=== PATIENT | male | born 1960 | race Caucasian/White ===

== ENCOUNTER → 2021-06-17 14:02 | Outpatient (BNVA) | payer OTHER, SELFPAY | PROVIDERS: PCP Internal Medicine; Referring Provider Internal Medicine; Visit Provider Internal Medicine Cardiovascular Disease | DX: I25.10 Atherosclerotic heart disease of native coronary artery without angina pectoris (principal); E78.5 Hyperlipidemia, unspecified | CPT/HCPCS: 93005 ==

== ENCOUNTER → 2022-07-07 14:17 | Outpatient (BNVA) | payer OTHER, SELFPAY | PROVIDERS: PCP Internal Medicine; Referring Provider Internal Medicine; Visit Provider Internal Medicine Cardiovascular Disease | DX: I25.10 Atherosclerotic heart disease of native coronary artery without angina pectoris (principal); E78.5 Hyperlipidemia, unspecified | CPT/HCPCS: 93005 ==

== ENCOUNTER 2023-07-06 10:39 | Outpatient (AMB) | payer OTHER, SELFPAY ==
[2023-07-06 10:54] VITALS: BP 118/72; PULSE 66; BMI 28.7
--- NOTE | 2023-07-06 10:54 | MHC.OFFVIS ---
Intake Vital Signs 07/06/23 10:54 Height 5 ft 6 in Weight 178 lb 2.136 oz BMI 28.7 BP 118/72 Blood Pressure Location Lt brachial Position Sitting Pulse 66 Pulse Source Monitor Intake Visit Reasons: 1 yr f/up Intake Note: 1 year follow up with EKG. 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 He has been doing extremely well from cardiac perspective. He has been exercising regularly with 45 minutes of cardio 6 times a week as well as 45 minutes of resistance training 6 times a week. Denies any exertional chest pain. Taking all his medications. Last LDL of 53 mg/dL. Denies any other cardiac symptoms. No prolonged palpitations irregular heartbeat. No lightheadedness, syncope. [facility] Medical History CAD (coronary artery disease) Hyperlipidemia Surgical History History of esophagogastroduodenoscopy (EGD) Stented coronary artery Family History Father CVD (cardiovascular disease) Mother CVD (cardiovascular disease) Social History Alcohol intake: never Patient Tobacco Use Status: Never used Tobacco Review of Systems Const Denies weakness ENT Denies dizziness Card Denies chest pain, Denies chest pain with activity, Denies syncope, Denies rapid heart rate, Denies pedal edema, Denies edema, Denies leg edema, Denies lightheadedness, Denies palpitations, Denies dyspnea, Denies dyspnea on exertion and Denies orthopnea Resp Denies cough, Denies dyspnea and Denies dyspnea on exertion GI Denies hematochezia and Denies change in stool character Musc Denies abnormal gait, Denies muscle cramps, Denies muscle weakness, Denies numbness, Denies radiating pain into limb and Denies tingling Neuro Denies abnormal gait, Denies dizziness, Denies syncope, Denies numbness, Denies tingling and Denies weakness Endo Denies palpitations Physical Exam Vital Signs: Last Vital Signs Pulse 66 07/06/23 10:54 BP 118/72 07/06/23 10:54 BMI result Body Mass Index 28.7 Const General: cooperative, comfortable, no acute distress, alert, awake and well groomed Nutritional Appearance: overweight Orientation/consciousness: patient oriented x3 Limitations: no limitations Neck Neck: Yes trachea midline, Yes supple and Yes no JVD Resp Effort & Inspection: normal respiratory effort Auscultation: clear to auscultation bilaterally Cardio Jugular venous distension: no JVD Palpation: normal PMI Rate: regular rate Rhythm: regular rhythm Heart sounds: S1 normal heart sound present, S2 normal heart sound present, no click, no gallops, no murmurs and no rubs GI Auscultation: normal bowel sounds Skin General skin exam: no rashes or lesions noted Neuro General: patient oriented x3 and no focal motor deficits Extrem General: Yes no clubbing, cyanosis or edema Office Procedures EKG Details: EKG shows normal sinus rhythm with normal EKG at 66 beats per minute [id number], Complete Assessment & Plan Assessment & Plan (1) CAD (coronary artery disease): Comment: Acute coronary syndrome, April 2015, drug-eluting stent to mid LAD Code(s): I25.10 - Atherosclerotic heart disease of [place] coronary artery without angina pectoris Plan: CAD with remote stenting of the LAD for acute coronary syndrome. Since then he has remained stable. His atherosclerotic disease is stable at this point time. Continue aggressive risk factor modification. LDL is well optimized at 53 mg/dL. Continue high-intensity statin therapy. Continue low-dose aspirin therapy for life. Blood pressure is currently well optimized encouraged to continue maintain activity level as tolerated without any restrictions. Call me with any new symptoms. We discussed in details about pathophysiology of coronary artery disease. Will follow up in the clinic in 1 year's time, sooner p.r.n.. Thank you for allowing me to partake in his care Coding Level of Care Code Est Pt Level 4 (45838) Diagnoses CAD (coronary artery disease) I25.10 CPT Codes EKG - CPT: 85384-[id number], Complete ([id number])
== END 2023-07-06 11:21 | disposition home or self-care (01) ==
PROVIDERS: PCP Internal Medicine; Referring Provider Internal Medicine; Visit Provider Internal Medicine Cardiovascular Disease
DX: I25.10 Atherosclerotic heart disease of native coronary artery without angina pectoris (principal)
CPT/HCPCS: 93010; 99214

== ENCOUNTER → 2023-07-06 10:39 | Outpatient (BNVA) | payer OTHER, SELFPAY | PROVIDERS: PCP Internal Medicine; Referring Provider Internal Medicine; Visit Provider Internal Medicine Cardiovascular Disease | DX: I25.10 Atherosclerotic heart disease of native coronary artery without angina pectoris (principal); Z79.82 Long term (current) use of aspirin; Z79.899 Other long term (current) drug therapy | CPT/HCPCS: 93005 ==

== ENCOUNTER 2024-07-18 09:59 | Outpatient (AMB) | payer MEDICARE, SELFPAY ==
--- NOTE | 2024-07-18 10:03 | MHC.OFFVIS ---
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 He has done extremely well. He continues to maintain high level activity exercise 6 days a week at high-intensity level without any symptoms. No exertional chest pain or shortness of breath. He had 1 episode of chest pain at rest after an hour after he ate. This lasted for 10-15 seconds. Has not recurred. Pain was not similar to his acute coronary syndrome pain. Takes all his medications. Denies any shortness of breath, orthopnea, PND, leg edema. No prolonged palpitation irregular heartbeat. [facility] Medical History Hyperlipidemia CAD (coronary artery disease) Surgical History Stented coronary artery History of esophagogastroduodenoscopy (EGD) Family History Father CVD (cardiovascular disease) Mother CVD (cardiovascular disease) Social History Alcohol intake: never Patient Tobacco Use Status: Never used Tobacco Review of Systems Const Denies chills, Denies fatigue, Denies fever(s), Denies frequent falls, Denies weakness, Denies weight gain and Denies weight loss ENT Denies dizziness Card Denies chest pain, Denies leg edema, Denies lightheadedness, Denies palpitations, Denies dyspnea, Denies dyspnea on exertion, Denies orthopnea and Denies other (loss of consciousness) Resp Denies cough, Denies dyspnea and Denies dyspnea on exertion GI Denies hematochezia and Denies change in stool character Musc Denies abnormal gait, Denies muscle weakness, Denies numbness, Denies radiating pain into limb and Denies tingling Neuro Denies abnormal gait, Denies dizziness, Denies frequent falls, Denies numbness, Denies tingling and Denies weakness Endo Denies fatigue and Denies palpitations Physical Exam Vital Signs: Last Vital Signs Pulse 64 07/18/24 10:04 BP 120/76 07/18/24 10:04 BMI result Body Mass Index 28.8 Const General: cooperative, comfortable, no acute distress, alert, awake and well groomed Nutritional Appearance: overweight Orientation/consciousness: patient oriented x3 Limitations: no limitations Neck Neck: Yes trachea midline, Yes supple and Yes no JVD Resp Effort & Inspection: normal respiratory effort Auscultation: clear to auscultation bilaterally Cardio Jugular venous distension: no JVD Palpation: normal PMI Rate: regular rate Rhythm: regular rhythm Heart sounds: S1 normal heart sound present, S2 normal heart sound present, no click, no gallops, no murmurs and no rubs GI Auscultation: normal bowel sounds Skin General skin exam: no rashes or lesions noted Neuro General: patient oriented x3 and no focal motor deficits Extrem General: Yes no clubbing, cyanosis or edema Office Procedures EKG Details: EKG shows normal sinus rhythm with normal EKG [id number], Complete Assessment & Plan Assessment & Plan (1) CAD (coronary artery disease): Comment: Acute coronary syndrome, April 2015, drug-eluting stent to mid LAD Code(s): I25.10 - Atherosclerotic heart disease of [place] coronary artery without angina pectoris Category: Medical Plan: Coronary artery disease status post drug-eluting stent to LAD for acute coronary syndrome. Recent chest pain syndrome was atypical. He is not having any exertional symptoms. Advised to call me with the symptom pattern changes. Continue current aspirin therapy for life. Continue high-intensity statin therapy with well optimized LDL. Will follow-up myocardial perfusion imaging next May at 10 year anniversary to evaluate for progressive atherosclerotic disease. Pathophysiology of atherosclerosis and nature of drug-eluting stent was discussed in details with him. Continue maintain activity level as tolerated. Annual lipid panel should be pursued and target goal LDL around 60 mg/dL. Will follow up in the clinic in 1 year's time, sooner p.r.n.. Thank you for allowing me to partake in his care Orders: Orders CA stress test 8 Months I25.10 - Atherosclerotic heart disease of [place] coronary artery without angina pectoris NM cardiolite stress test 8 Months I25.10 - Atherosclerotic heart disease of [place] coronary artery without angina pectoris Coding Level of Care Code Est Pt Level 4 (90981) Diagnoses CAD (coronary artery disease) I25.10 CPT Codes EKG - CPT: 01543-[id number], Complete ([id number])
[2024-07-18 10:04] VITALS: BP 120/76; PULSE 64; BMI 28.8
== END 2024-07-18 10:30 | disposition home or self-care (01) ==
PROVIDERS: PCP Internal Medicine; Visit Provider Internal Medicine Cardiovascular Disease
DX: I25.10 Atherosclerotic heart disease of native coronary artery without angina pectoris (principal)
CPT/HCPCS: 93010; 99214

== ENCOUNTER → 2024-07-18 09:59 | Outpatient (BNVA) | payer BC, SELFPAY | PROVIDERS: PCP Internal Medicine; Visit Provider Internal Medicine Cardiovascular Disease | DX: I25.10 Atherosclerotic heart disease of native coronary artery without angina pectoris (principal); Z79.82 Long term (current) use of aspirin; Z79.899 Other long term (current) drug therapy | CPT/HCPCS: 93005 ==

== ENCOUNTER → 2025-04-06 08:13 | Outpatient (REF) | payer MEDICARE, SELFPAY ==
--- OUTSIDE RECORDS SUMMARY | 2025-04-06 08:17 | XMS_ITS | Clinical Summary ---
Author Organization [facility], Address [address] [place] [address] [place] [address] Phone Care Team Providers Care Quality Control Tester Name Role Phone Layton Calvert MD Primary Care Provider [phone] Allergies Active Allergy Reactions Criticality Noted Date Comments Fentanyl 05/06/2021 Medications omeprazole (PriLOSEC) [address] capsule Take by mouth 1 (one) time each day 02/28/2021 Active amoxicillin-cla vulanate (AUGMENTIN) 875-125 MG per tablet 04/24/2021 Active atorvastatin (LIPITOR) 80 MG tablet Take 80 mg by mouth 1 (one) time each day in the evening 01/27/2021 Active aspirin 81 MG chewable tablet Chew 81 mg 1 (one) time each day Active Active Problems Problem Noted Date Diagnosed Date Hyperbilirubinemia 05/06/2021 Social History Tobacco Use Types Packs/Day Years Used Date Smoking Tobacco: Never Sex and Gender Information Value Date Recorded Sex Assigned at Not on file Legal Sex Male 12:05 PM EDT Gender Identity Not on file Sexual Orientation Not on file Plan of Treatment Health Maintenance Due Date Last Done Comments Colorectal Cancer Screening: Annual FOBT 2007 Colorectal Cancer Screening: Colonoscopy 2007 Colorectal Cancer Screening: Sigmoidoscopy 2007 Pneumococcal Vaccine: 50+ Ye ars (1 of 1 - PCV) 2008 Influenza Vaccine (Season Ended) 2025 Hepatitis B Vaccine Aged Out No longe r eligible based on patient's age to complete this topic [place] [address] Care Teams Quality Control Tester Relationship Specialty Start Date End Date Layton Calvert MD [address] [place] [address] [address] [place], [place] PCP - General Internal Medicine 03/28/21
--- NOTE | 2025-04-06 08:31 | CA_ITS ---
Acquisition Time: 2025-04-06 08:40:11 Total Exercise Time: 00:10:30 Test Indications: CP CAD Medications: ASA ATORVASTATIN OMEPRAZOLE Protocol: CARLOS Max HR: 171 BPM 111% of Pred: 154 BPM Max BP: 170/70 mmHG Max Work Load: 12.5 METS Exercise stress test with exercise 10 mins 30 secs of Carlos Protocol, achieving 90% MPHR, without any anginal symptoms, without any arrythmias, with normotensive response to exercise. Without any EKG changes meeting criteria for ischemia. In recovery, pt continued to feel good. Nuclear images pending. Test reviewed with Dr. Laguna. Referred By: Thomas Laguna Electronically Signed By: Silviano Hubbard
== END ==
LOC: HO.CARD 08:13
PROVIDERS: Visit Provider Internal Medicine Cardiovascular Disease
DX: I25.10 Atherosclerotic heart disease of native coronary artery without angina pectoris (principal)
CPT/HCPCS: 93017

== ENCOUNTER → 2025-04-06 08:31 | Outpatient (BNV) | payer MEDICARE, SELFPAY | DX: R07.9 Chest pain, unspecified (principal); I25.10 Atherosclerotic heart disease of native coronary artery without angina pectoris | CPT/HCPCS: 78452; 93016; 93018 ==

== ENCOUNTER 2025-05-30 08:26 | Outpatient (AMB) | payer MEDICARE, SELFPAY ==
--- OUTSIDE RECORDS SUMMARY | 2025-05-25 23:59 | XMS_ITS | Continuity of Care Document ---
Author Organization [facility] Address [address] [place] [address]- Care Team Providers Care Clinical Trial Associate Name Role Phone Philip MORALES, Soraya Primary Care Physician Encounter [facility] Date(s): 05/18/25 - 05/25/25 [facility] [address], [place] [address] Attending Physician: Michi Macias MD Referring Physician: Lauren Nava MD Encounter Type: Office Visit Allergies, Adverse Reactions, Alerts Substance Criticality Severity Reaction Reaction Severity Status fentaNYL Unable to assess criticality Unknown Active Immunizations Given and Recorded Vaccine Date Status Refusal Reason nirsevimab (cvx 306) 10/15/24 Recorded influenza virus vaccine, inactivated 07/18/24 Gamal rded influenza virus vaccine, inactivated 08/12/23 Gamal rded influenza virus vaccine, inactivated 08/28/21 Gamal rded influenza virus vaccine, inactivated 08/25/18 Gamal rded influenza virus vaccine, inactivated 1 08/31/17 Re corded influenza virus vaccine, inactivated 08/21/17 Gamal rded influenza virus vaccine, inactivated 08/25/16 Gamal rded influenza virus vaccine, inactivated 07/20/15 Gamal rded influenza virus vaccine, inactivated 08/11/14 Gamal rded influenza virus vaccine, inactivated 09/02/13 Give n influenza virus vaccine, inactivated 06/23/12 Give n influenza virus vaccine, inactivated 08/15/10 Give n SARS-CoV-2(COVID-19)mRNA-LNP vac([id number]) 07/18/24 Recorded SARS-CoV-2(COVID-19)mRNA-LNP vac(byt208) 08/12/23 Recorded pneumococcal 20-valent conjugate vaccine 2 05/04/23 Given [id number] bivalent booster vax 09/27/22 Recorded SARS-CoV-2 (COVID-19) mRNA-1273 vaccine 02/22/22 R ecorded SARS-CoV-2 (COVID-19) mRNA-1273 vaccine 09/21/21 R ecorded SARS-CoV-2 (COVID-19) mRNA-1273 vaccine 12/08/20 R ecorded SARS-CoV-2 (COVID-19) mRNA-1273 vaccine 11/10/20 R ecorded tetanus/diphtheria/pertussis, acel(Tdap) 12/23/19 Recorded Influenza Virus Vaccine (oldterm) 08/09/19 Recorde d Influenza Virus Vaccine (oldterm) 08/09/18 Recorde d Influenza Virus Vaccine (oldterm) 3 09/09/11 Given Influenza Virus Vaccine (oldterm) 4 12/10/09 Given Influenza Virus Vaccine (oldterm) 5 09/09/08 Given zoster vaccine, inactivated 6 05/27/19 Recorded zoster vaccine, inactivated 05/15/19 Recorded zoster vaccine, inactivated 03/14/19 Recorded zoster vaccine, inactivated 7 03/09/19 Recorded Zoster Vaccine Live 8 05/27/19 Recorded Zoster Vaccine Live 9 03/09/19 Recorded pneumococcal 23-valent vaccine 05/07/15 Given Hepatitis A Adult Vaccine 10 05/30/14 Given Hepatitis A Adult Vaccine 01/03/14 Given Tet/Diphth/Acel, Pertussis (oldterm) 12/16/10 Give n Tetanus Toxoid Vaccine (oldterm) 11/09/00 Given 1Result Comment: [01/29/2018] [facility] 2Result Comment: [id number] 3Admin Note: at work 4Admin Note: per pt rcvd eklsewhere 5Admin Note: elsewhere [facility] 10Result Comment: [05/30/2014] #2 Medications Aspir 81 Oral Enteric Coated Tablet 1 tablet = 81 mg, By Mouth, Daily, # 30 tablet, 3 Refills, Maintenance, 05/08/15 8:15:56 AM EDT, EC Tablet Start Date: 05/08/15 Stop Date: 09/05/15 Status: Ordered Quantity: 30.0 Unit: tablet Repeat number: 4 atorvastatin 80 mg oral tablet 1 tablet = 80 mg, By Mouth, Daily, # 90 tablet, 3 Refills, Maintenance, 06/15/24 9:40:00 AM EDT, Tablet, [id number], 168, cm, 06/15/24 9:21:00 EDT, Height, 80.5, kg, 01/05/24 16:44:00 EST, Dry Weight Start Date: 06/15/24 Stop Date: 06/10/25 Status: Ordered Quantity: 90.0 Unit: tablet Repeat number: 4 omeprazole 20 mg oral enteric coated capsule 1 capsule = 20 mg, By Mouth, Daily, # 90 capsule, 3 Refills, Maintenance, 06/15/24 9:40:00 AM EDT, ECCapsule, [id number], 168, cm, 06/15/24 9:21:00 EDT, Height, 80.5, kg, 01/05/24 16:44:00 EST, Dry Weight Start Date: 06/15/24 Status: Ordered Quantity: 90.0 Unit: capsule Repeat number: 4 Vitamin B12 1000 mcg oral tablet 1 tablet = 1,000 mcg, By Mouth, Daily, # 30 tablet, 0 Refills, Maintenance, 04/09/22 9:25:00 AM EDT, Tablet, Partial fill upon patient request if the prescription is for a schedule II opioid drug. 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 egd 2018 no need f/u 1, 2 Confirmed 05/01/16 Active Overweight (BMI 25.0-29.9) Confirmed Active Arteriosclerotic heart disease (ASHD) 3 Confirmed Active Diverticulosis of colon Confirmed Active Encounter for monitoring long-term proton pump inhibitor therapy Confirmed Active Hemangioma of liver 4 Confirmed Active History of acute myocardial infarction 5 Confirmed 05/03/15 Active Status post insertion of drug-eluting stent into left anterior descending (LAD) artery 6 Confirmed Active Impaired fasting glucose 7 Confirmed Active Nodule of finger Confirmed Active Onychomycosis of great toe Confirmed Active Other Primary Thrombocytopenia; normal liver/splle sono / ?ITP 8 Confirmed Active Left leg paresthesias Confirmed Active Physical exam Confirmed Active Screening for prostate cancer Confirmed Active Colon polyp Confirmed Active Subclinical hypothyroidism 9 Confirmed Active Schatzki's ring gd 2015 10, 11 Confirmed Active 1repeat EGD 2019 2egd 2q016 3lad stent April 2015 4serial MRIs 5lad stent april 2015 06252 7advised pre diabetes 8some clumping on smear 9monitoring 10egd 2015 11refer EGD Social History Social History Type Response Smoking Status Never smoker entered on: 01/03/14 Sex Sex Representation Male (finding) Patient Care team information Care Team Personnel Name: Nkechi Bear RN Position: [facility] SN RN Member Role: Primary Care Nurse Name: Soraya Palacios MD Position: [facility] Physician - Primary Care Member Role: PCP Address: [address] [place] [id number] Telecom: Name: Silvino Bailey Position: [facility] RN Member Role: Primary Care Nurse Care Team Related Persons Name: CAROL CASTRO Name: CHUY WEEMS Insurance Providers Guarantor name: SHAHAB FAUSTINA Health Plan Information #: 1 Payer: MEDICARE B Payer Identifier: NA Member Number: [id number] Group Number: Subscriber Identifier: [id number] Relationship to Subscriber: self Coverage Type: NA Coverage Verification Date: NA Telecom: NA Address: Health Plan Information #: 2 Payer: MEDEX SECONDARY ONLY Payer Identifier: NA Member Number: [id number] Group Number: Subscriber Identifier: [id number] Relationship to Subscriber: self Coverage Type: Medicare Other Coverage Verification Date: NA Telecom: NA Address:
--- OUTSIDE RECORDS SUMMARY | 2025-05-30 08:40 | XMS_ITS | Clinical Summary ---
Author Organization [facility], Address [address] [place] [address] [place] [address] Phone Care Team Providers Care Clinical Staff Anesthesiologist Name Role Phone Layton Calvert MD Primary Care Provider [phone]- [phone] Allergies Active Allergy Reactions Criticality Noted Date [...] of 1 - PCV) 2008 Influenza Vaccine (#1) 2025 Hepatitis B Vaccine Aged Out No longe r eligible based on patient's age to complete this [place] [address] Care Teams Clinical Staff Anesthesiologist Relationship Specialty Start Date End Date Layton Calvert MD [address] [place] [address] [address] [place], [place] PCP - General Internal Medicine 03/28/21
--- OUTSIDE RECORDS SUMMARY | 2025-05-30 08:40 | XMS_ITS | Patient Health Record ---
[facility] Address [address] [place] [address] Care Team Providers Care Legal Manager Name Role Phone Jose Naik Primary Care Provider Ladan Maxwell Unavailable [phone] Allergies Allergen (clinical drug ingredient) Drug/Non Drug Allergy documented on EMR Reaction Allergy Type Onset Date Status fentanyl Fentanyl blood pressure drops Drug Allergy Active Reason For Referral No Information Medications Medication SIG (Take, Route, Frequency, Duration) Notes Start Date End Date Status Aspirin 81 MG 1 capsule Orally Onc e a day Active Vitamin B12 1000 MCG 1 tablet Orally Onc e a day Active Omeprazole 20 MG 1 capsule 1/2 to 1 h our before morning meal Orally Once a day Active Atorvastatin Calcium 80 MG 1 tablet Oral ly Once a day Active Social History Tobacco Use: Social History Observation Description Date Details (start date - stop date) Never Smoker NA - NA Tobacco use other than smoking: Question Answer Notes Are you an other tobacco user? No Tobacco Control (Standard) Question Answer Notes Tobacco use: Nonsmoker Additional Findings: Tobacco non-user Current no nsmoker AUDIT-C (Standard) Question Answer Notes Did you have a drink containing alcohol in the p ast year? No Points 0 Interpretation Negative Vital Signs Blood pressure diastolic 80 mm Hg 04/11/2025 Height 5 ft 5 in in 04/11/2025 Blood pressure systolic 126 mm Hg 04/11/2025 Weight 173 lbs 04/11/2025 BMI 28.79 kg/m2 04/11/2025 Encounters Encounter Location Date Provider Diagnosis [facility] [address] [place] [address] 04/11/2025 Ladan Chandler Onychomycosis B35.1 and Pain in left toe(s) M79.675 [facility] [address] [place] [address] 04/11/2025 Ladan Chandler Assessments Encounter Date Diagnosis (ICD Code) Assessment Notes Treatment Notes Treatment Clinical Notes Section Notes 04/11/2025 Pain in left toe(s) (ICD-10 - M79.675) 04/11/2025 Onychomycosis (ICD-10 - B35.1) Plan Of Treatment No Information Insurance Providers Payer Name Payer Address Payer Phone Subscriber Number Group Number Insured Name Patient Relationship to Insured Coverage Start Date Coverage End Date Medicare National Govt Sv[employer] [address] [facility] [address] [id number] Bry Zapata Self - patient is the insured 4 [employer] [address] [place] [address] [phone] [id number] Bry Zapata Self - patient is the insured Medical (General) History Medical History History ICD Code Back,Hip,and Knee pain Broken bones Heart disease Reflux ( GERD) Measles Mumps Chicken pox Spinal stenosis stent placement Surgical History Surgery Date(Month/Year) Stent 04/2015
--- NOTE | 2025-05-30 08:41 | MHC.OFFVIS ---
Vital Signs 05/30/25 08:42 Height 5 ft 6 in Weight 179 lb 14.355 oz BMI 29.0 BP 120/72 Blood Pressure Location Lt brachial Position Sitting Pulse 58 Pulse Source Monitor Intake Visit Reasons: f/u per NS Patient Financial Specialist Required: No Allergies fentanyl Allergy (Unknown, Verified 05/30/25 08:46) low bp Medication List - Last Reconciled 05/30/25 by Bobbi Peralta, LYNETTE-C aspirin (Adult Aspirin Regimen) 81 mg PO DAILY atorvastatin 80 mg PO DAILY omeprazole 20 mg PO DAILY vitamin B complex (B Complex-Vitamin B12 tablet) 1 tab PO DAILY HPI HPI f/u per NS: Details: Bry is a 64-year-old male with past medical history of hyperlipidemia, coronary artery disease with LAD stent 04/2015 who presents for follow-up after recent nuclear stress test. Today he reports that he has been feeling well with no concerning symptoms. He has no chest discomfort at rest or with activity. He has no shortness of breath, PND, orthopnea or edema. He denies heart palpitations, lightheadedness. He has good activity tolerance and goes to the gym 6 days a week doing 45 minutes of cardio and core/resistance training. Recent labs done by his PCP. [facility] Medical History (Updated 05/30/25 @ 12:37 by DALILA ParedesC) Hyperlipidemia CAD (coronary artery disease) Surgical History (Updated 05/30/25 @ 12:37 by Bobbi Peralta, LYNETTE-C) Stented coronary artery History of esophagogastroduodenoscopy (EGD) Family History Father CVD (cardiovascular disease) Mother CVD (cardiovascular disease) Social History Alcohol intake: never Patient Tobacco Use Status: Never used Tobacco Review of Systems Const All systems reviewed & are unremarkable except as noted in HPI and below ENT Denies dizziness Card Denies chest pain, Denies chest pain at rest, Denies chest pain with activity, Denies rapid heart rate, Denies pedal edema, Denies edema, Denies leg edema, Denies lightheadedness, Denies palpitations, Denies dyspnea, Denies dyspnea on exertion and Denies orthopnea Resp Denies cough, Denies dyspnea and Denies dyspnea on exertion GI Denies hematochezia and Denies change in stool character Musc Denies abnormal gait, Denies limited range of motion, Denies muscle cramps, Denies muscle weakness, Denies numbness, Denies radiating pain into limb, Denies stiffness and Denies tingling Neuro Denies abnormal gait, Denies dizziness, Denies numbness and Denies tingling Endo Denies palpitations Physical Exam Vital Signs: Last Vital Signs Pulse 58 05/30/25 08:42 BP 120/72 05/30/25 08:42 BMI result Body Mass Index 29.0 Const General: cooperative, healthy appearing, comfortable and no acute distress Orientation/consciousness: patient oriented x3 Neck Neck: Yes normal visual inspection and Yes no JVD Resp Effort & Inspection: normal respiratory effort Auscultation: clear to auscultation bilaterally, no crackles, no rales, no rhonchi and no wheezes Cardio Jugular venous distension: no JVD Rate: regular rate Rhythm: regular rhythm Heart sounds: S1 normal heart sound present, S2 normal heart sound present, no gallops, no murmurs and no rubs Peripheral pulses: Peripheral pulses 2+ throughout Neuro General: patient oriented x3 Extrem General: Yes normal to inspection and No no pedal edema Psych Appearance: grossly normal Mental Status: mental status grossly normal Speech and movement: Normal speech and movement present Office Procedures EKG Details: Today read by me, sinus bradycardia, no acute ST or T-wave abnormalities, poor R-wave progression on V3 likely related to lead placement, rate 58. [id number], Complete Assessment & Plan Assessment & Plan (1) CAD (coronary artery disease): Comment: Acute coronary syndrome, April 2015, drug-eluting stent to mid LAD Code(s): I25.10 - Atherosclerotic heart disease of [place] coronary artery without angina pectoris Category: Medical Plan: History of CAD with ACS 04/2015. Cardiac catheterization 05/07/2015 showed mid LAD 95% stenosis, RCA minimal irregularities, JOSH placed to the mid LAD. Last echo in our system 05/05/2015 showed EF 60-65% with no regional wall motion abnormalities and no significant valve abnormalities. He did have a nuclear stress test on 04/06/2025 since it has been 10 years since stent placement. Stress test showed ischemia in the mid to distal anterior lateral wall, the exercise portion showed exercise 10.5 minutes with no anginal symptoms or EKG changes. Test results reviewed with him. He currently has no angina. Will update echocardiogram and plan to call him with results. Continue aspirin indefinitely. Continue atorvastatin with LDL goal less than 70. Signs and symptoms of angina reviewed. Cardiology follow-up 6 months, sooner if needed. (2) Abnormal nuclear stress test: Code(s): R94.39 - Abnormal result of other cardiovascular function study Category: Medical Plan: Recent nuclear stress test showing normal exercise portion with abnormal nuclear perfusion imaging, EF 41% during stress and 51% during rest. Asymptomatic. Could be false positive. Will update echocardiogram. (3) Stented coronary artery: Comment: Mid LAD drug-eluting stent, April of 2015 for acute coronary syndrome Code(s): Z95.5 - Presence of coronary angioplasty implant and graft Category: Surgical Plan: As above (4) Hyperlipidemia: Code(s): E78.5 - Hyperlipidemia, unspecified Category: Medical Plan: [place] LDL goal less than 70. No recent labs for review. Will obtain labs from PCP. Continue high-dose atorvastatin. Plan Time spent on chart review, documentation, interview and assessment Orders: Orders CA echo transthoracic complete Today I25.10 - Atherosclerotic heart disease of [place] coronary artery without angina pectoris Coding Level of Care Code Est Pt Level 4 (86607) Complex EM visit Add On G2211 Diagnoses CAD (coronary artery disease) I25.10 Abnormal nuclear stress test R94.39 Stented coronary artery Z95.5 Hyperlipidemia E78.5 CPT Codes EKG - CPT: 08834-[id number], Complete ([id number]) Time Spent (min) 32
[2025-05-30 08:42] VITALS: BP 120/72; PULSE 58; BMI 29.0
== END 2025-05-30 09:16 | disposition home or self-care (01) ==
LOC: HO.HCS 08:27
PROVIDERS: Visit Provider Nurse Practitioner Family
DX: I25.10 Atherosclerotic heart disease of native coronary artery without angina pectoris (principal); R94.39 Abnormal result of other cardiovascular function study; Z95.5 Presence of coronary angioplasty implant and graft; E78.5 Hyperlipidemia, unspecified
CPT/HCPCS: 93010; 99214; G2211

== ENCOUNTER → 2025-05-30 08:26 | Outpatient (BNVA) | payer MEDICARE, SELFPAY | PROVIDERS: Visit Provider Nurse Practitioner Family | DX: I25.10 Atherosclerotic heart disease of native coronary artery without angina pectoris (principal); R94.39 Abnormal result of other cardiovascular function study; E78.5 Hyperlipidemia, unspecified; Z95.5 Presence of coronary angioplasty implant and graft; R00.1 Bradycardia, unspecified; R94.31 Abnormal electrocardiogram [ECG] [EKG] | CPT/HCPCS: 93005; 99212 ==

== ENCOUNTER → 2025-06-28 14:12 | Outpatient (REF) | payer MEDICARE, SELFPAY ==
--- OUTSIDE RECORDS SUMMARY | 2025-06-27 23:59 | XMS_ITS | Continuity of Care Document ---
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 no need f/u(Discharge Diagnosis) - 06/20/25 Arteriosclerotic heart disease (ASHD)(Discharge Diagnosis) - 06/20/25 Colon polyp(Discharge Diagnosis) - 06/20/25 Hemangioma of liver(Discharge Diagnosis) - 06/20/25 History of acute myocardial infarction(Discharge Diagnosis) - 06/20/25 Impaired fasting glucose(Discharge Diagnosis) - 06/20/25 Indirect hyperbilirubinemia(Discharge Diagnosis) - 06/20/25 Screening for prostate cancer(Discharge Diagnosis) - 06/20/25 Status post insertion of drug-eluting stent into left anterior descending (LAD) artery(Discharge Diagnosis) - 06/20/25 Subclinical hypothyroidism(Discharge Diagnosis) - 06/20/25 Obese class I(Discharge Diagnosis) - 06/20/25 Screening for hyperlipidemia(Discharge Diagnosis) - 06/20/25 Other Primary Thrombocytopenia; normal liver/splle sono / ?ITP(Discharge Diagnosis) - 06/20/25 Excess ear wax(Discharge Diagnosis) - 06/20/25 Attending Physician: Soraya Palacios MD Encounter Type: Office Visit Allergies, Adverse [...] virus vaccine, inactivated 08/15/10 Give n SARS-CoV-2(COVID-19)mRNA-LNP vac([id number]) 07/18/24 Recorded SARS-CoV-2(COVID-19)mRNA-LNP vac([id number]) 08/12/23 Recorded pneumococcal 20-valent conjugate vaccine 2 05/04/23 Given [id number] bivalent booster vax 09/27/22 Recorded SARS-CoV-2 (COVID-19) [...] Given 1Result Comment: [01/29/2018] [facility] 2Result Comment: [id number] 3Admin Note: at work 4Admin Note: per [...] Daily, # 90 tablet, 3 Refills, Maintenance, 06/20/25 2:51:00 PM EDT, Tablet, [facility], 164.1, cm, 06/20/25 14:19:00 EDT, Height, 80.5, kg, 01/05/24 16:44:00 EST, Dry Weight Start Date: 06/20/25 Stop Date: 06/15/26 Status: Ordered Quantity: 90.0 Unit: tablet Repeat number: 4 omeprazole 20 mg oral enteric coated capsule 1 capsule = 20 mg, By Mouth, Daily, # 90 capsule, 3 Refills, Maintenance, 06/20/25 2:51:00 PM EDT, EC Capsule, [facility], 164.1, cm, 06/20/25 14:19:00 EDT, Height, 80.5, kg, 01/05/24 16:44:00EST, Dry Weight Start Date: 06/20/25 Status: Ordered Quantity: 90.0 Unit: capsule Repeat [...] need f/u 1, 2 Confirmed 05/01/16 Active Arteriosclerotic heart disease (ASHD) 3 Confirmed Active Diverticulosis of colon Confirmed Active Hemangioma of liver 4 Confirmed Active History of acute myocardial infarction 5 Confirmed 05/03/15 Active Status post insertion of drug-eluting stent into left anterior descending (LAD) artery 6 Confirmed Active Impaired fasting glucose 7 Confirmed Active Obese class I Confirmed Active Other Primary Thrombocytopenia; normal liver/splle sono / ?ITP 8 Confirmed Active Screening for prostate cancer Confirmed Active Colon polyp Confirmed Active Subclinical hypothyroidism 9 Confirmed Active Schatzki's ring gd 2015 10, 11 Confirmed Active 1repeat EGD 2018 2egd 2q016 3lad stent April 2015 4serial MRIs 5lad stent april 2015 20591 7advised pre diabetes 8some clumping on smear 9monitoring d 2015 11refer EGD Diagnosis Diagnosis Type Effective Dates Health Status Clinical Service Informant Medicare annual wellness visit, subsequent Discharge Diagnosis 06/20/25 Temple's esophagus egd 2015/normal egd 2018 no need f/u Discharge Diagnosis 06/20/25 Arteriosclerotic heart disease (ASHD) Discharge Diagnosis 06/20/25 Colon polyp Discharge Diagnosis 06/20/25 Hemangioma of liver Discharge Diagnosis 06/20/25 History of acute myocardial infarction Discharge Diagnosis 06/20/25 Impaired fasting glucose Discharge Diagnosis 06/20/25 Indirect hyperbilirubinemia Discharge Diagnosis 06/20/25 Screening for prostate cancer Discharge Diagnosis 06/20/25 Status post insertion of drug-eluting stent into left anterior descending (LAD) artery Discharge Diagnosis 06/20/25 Subclinical hypothyroidism Discharge Diagnosis 06/20/25 Obese class I Discharge Diagnosis 06/20/25 Screening for hyperlipidemia Discharge Diagnosis 06/20/25 Other Primary Thrombocytopenia; normal liver/splle sono / ?ITP Discharge Diagnosis 06/20/25 Excess ear wax Discharge Diagnosis 06/20/25 Social History Social History Type Response Smoking Status Never smoker entered on: 01/03/14 Sex Sex Representation Male (finding) Note * Adelaida Arthur: PERFORM Event Display: Patient Education/Instruction Authored Date: [id number] Ambulatory Adult Visit Summary [facility] [address] [place] [address] Name: SHAHAB WEEMS : 1960?? Visit: 06/20/2025 14:11?? Ambulatory Visit Instructions ?? Your Care Team Primary Care Provider Soraya Palacios MD? This Visit Provider Soraya Palacios MD Your Diagnosis Medicare annual wellness visit, subsequent Temple's esophagus egd 2015/normal egd 2018 no need f/u Arteriosclerotic heart disease (ASHD) Colon polyp Hemangioma of liver History of acute myocardial infarction Impaired fasting glucose Indirect hyperbilirubinemia Screening for prostate cancer Status post insertion of drug-eluting stent into left anterior descending (LAD) artery Subclinical hypothyroidism Obese class I Screening for hyperlipidemia Other Primary Thrombocytopenia; normal liver/splle ??sono / ?ITP Excess ear wax Vitals Signs Pulse Rate: 64 bpm Height: 164.1 cm Systolic Blood Pressure: 115 mm Hg Weight: 90.9 kg Diastolic Blood Pressure: 69 mm Hg Body Mass Index:??33.76 kg/m2??Critical Oxygen Saturation: 97 % Body surface area: 2.04 What to do next Follow-Up Appointments Follow Up with??Soraya Palacios MD When:??Within 1 year Why: [facility]V?? Where: [address] [place] [address] Adult [facility] [place] [address]- Future Orders Comprehensive Metabolic Panel - Routine, Once, 06/20/25 14:32:00 EDT, Future Order, [facility], Blood?? Lipid Panel - Routine, Once, 06/20/25 14:32:00 EDT, Future Order, [facility], Blood?? Hemoglobin A1C (Monitoring) - Routine, Once, 06/20/25 14:32:00 EDT, Future Order, [facility], Blood?? TSH - Routine, Once, 06/20/25 14:32:00 EDT, Future Order, [facility], Blood?? Free T4 - Routine, Once, 06/20/25 14:32:00 EDT, Future Order, [facility], Blood?? PSA Screen - Routine, Once, 06/20/25 14:36:00 EDT, Future Order, [facility], Blood?? CBC w/ Differential - Routine, Once, 06/20/25 14:38:00 EDT, Future Order, [facility], Blood?? Medications The list below reflects the information in our records and provided by you today along with any changes made during this visit. Please continue your medications until treatment is completed or stopped by your provider. If this is different from the information you have or there are other questions,please contact the prescribing provider. What How Much When Why Instructions New Atorvastatin (atorvastatin 80 mg oral tablet) 1 tab(s) Oral Daily Duration: 90 Days Refills: 3 Pickup at [facility] New Carbamide Peroxide Otic (Debrox 6.5% solution) 5 Drops Both ears Twice a day Excess ear wax Duration: 4 Days Pickup at [facility] New Omeprazole (omeprazole 20 mg oral enteric coated capsule) 1 capsule Oral Daily Refills: 3 Pickup at [facility] Unchanged Aspirin (Aspir 81 Oral Enteric Coated Tablet) 1 tab(s) Oral Daily Duration: 30 Days Unchanged Cyanocobalamin (Vitamin B12 1000 mcg oral tablet) 1 tab(s) Oral Daily Pharmacy Information [facility]: [address], [place] [id number] [phone] Test Performed Below is a partial list of the tests performed during your Visit. You may have had other tests and procedures not included in this list. Please discuss all test results with your provider. CBC w/ Differential?-- Results Pending -- Comprehensive Metabolic Panel?-- Results Pending -- Free T4?-- Results Pending -- Hemoglobin A1C (Monitoring)?-- Results Pending -- Lipid Panel?-- Results Pending -- PSA Screen?-- Results Pending -- TSH?-- Results Pending -- Medications and Immunizations Administered Medications Given During Visit No medications given during this visit.?? Allergies (NKA means No Known Allergies) fentaNYL Common Emergency Awareness Tips IS IT A STROKE? Act FAST and Check for these signs: FACE Does the face look uneven? ARM Does one arm drift down? SPEECH Does their speech sound strange? TIME Call at any sign of stroke ?? Heart Attack Signs Chest discomfort: Most heart attacks involve discomfort in the center of the chest and lasts more than a few minutes, or goes away and comes back. It can feel like uncomfortable pressure, squeezing, fullness or pain. Discomfort in upper body: Symptoms can include pain or discomfort in one or both arms, back, neck, jaw or stomach. Shortness of breath: With or without discomfort. Other signs: Breaking out in a cold sweat, nausea, or lightheaded. Remember, MINUTES DO MATTER. If you experience any of these heart attack warning signs, call to get immediate medical attention! ?? Smoking can increase your chances of developing chronic health problems and can cause harmful effects to other family members in your house. If you smoke, you are strongly encouraged to quit. Please call [facility] at [phone] or 9-419-621[place] World ([phone]) or log in to [email or web address] for referrals to smoking cessation programs. ?? The National Suicide Prevention Hotline is available 01/06 if you or someone you know needs to find a reason to keep living. By calling 7-952-070-[employer] (0201) you'll be connected to a skilled, trained counselor at a crisis center in your area. [facility] Portal You can view and manage your care through the patient portal or by using a health care dinora of your choosing. [address] is a website that allows you to securely view your medical information including your hospital discharge summary, office visit summaries, medications and follow-up visits. You can also request appointments, renew medications, and request access to your medical information using a health care dinora of your choosing, or just ask a question. You can enroll at [email or web address] or register during your next office visit. [facility], in keeping with [facility] guidance, no longer requires face masks for staff, patientsor visitors in most situations. Similiar to time spent indoors at other locations, there is the chance that you were exposed to repiratory viruses during your time with us (such as flu or COVID-19). If you develop symptoms concerning for a viral respiratory infection, please seek testing (and treatment if indicated) from your medical provider or home test kit. ?? Disclaimer: The information provided is of a general nature and is intended to be used in conjunction with the recommendations and advice of your health care practitioner. Every effort has been made to ensure that the information provided is accurate and complete at the time it is provided to you however, as your needs change, or, as new information becomes available, different or additional instructions may be required. ?? If you have questions, please consult with your primary care provider or pharmacist, as appropriate. This information is not intended to serve as substitution for assessment and evaluation by a qualified health care provider. If you do not have a primary care provider, you may find a [facility] provider by calling [facility] at [phone]. Patient Care team information Care Team Personnel Name: Nkechi Bear RN Position: [facility] RN Member Role: Primary Care Nurse Name: Soraya Palacios MD Position: [facility] Physician - Primary Care Member Role: PCP Address: [address] [place] [address] Telecom: Name: Silvino Bailey Position: [facility] RN Member Role: Primary Care Nurse Care Team Related Persons Name: CAROL CASTRO Name: CHUY WEEMS Insurance Providers Guarantor name: SHAHAB WEEMS Health Plan Information #: 1 Payer: MEDICARE B Payer Identifier: Member Number: [id number] Group Number: Subscriber Identifier: [id number] Relationship to Subscriber: self Coverage Type: NA Coverage Verification Date: NA Telecom: NA Address: NA Health Plan Information #: 2 Payer: MEDEX SECONDARY ONLY Payer Identifier: Member Number: [id number] Group Number: Subscriber Identifier: [id number] Relationship to Subscriber: self Coverage Type: Medicare Other Coverage Verification Date: NA Telecom: NA Address:
--- NOTE | 2025-06-28 14:16 | CA_ITS ---
Transthoracic Echocardiogram Patient (Last, First, Middle): Bry Zapata, Gender: M Date of : 1960 Age: 64 Procedure Date: 06/28/2025 Procedure Type: Transthoracic Echocardiogram Location: OP Height: 165.1 cm Weight: 78.93 kg BSA: 1.86 m2 Heart Rate: 62 bpm BP: 118 / 62 mmHg Boiler Erector: SB Referring MD: Bobbi Peralta CAR ICER-Alexandr Export Packer: Thomas Laguna MD Symptoms: I25.10 Study Quality: Fair but adequate ECG Rhythm: Sinus Conclusions: - 1. Normal LV ejection fraction of 60 65% 2. Normal cardiac valvular Dopplers 3. Upper limits of normal ascending aortic size 4. No gross pericardial effusion Findings Left Ventricle Normal left ventricular size, thickness, and systolic function. The visually estimated ejection fraction is between 60-65%. Spectral Doppler is indicative of a normal filling pattern. Wall Motion Rest Echo Findings The basal inferior segment is hypokinetic. All other scored wall segments showed normal motion. Right Ventricle Normal right ventricular cavity size and systolic function. Atria The left atrium is normal in size. There is no evidence of interatrial shunt. The right atrium is normal in size. Aortic Valve Normal aortic valve structure and function. There is no aortic valve stenosis. There is no aortic valve regurgitation. Mitral Valve Normal mitral valve structure and function. There is trace mitral valve regurgitation. There is no mitral valve stenosis. Pulmonic Valve The pulmonic valve was not well visualized. Tricuspid Valve Likely normal tricuspid valve structure and function. Tricuspid regurgitation envelope is inadequate for calculation of right ventricular systolic pressure. Normal right atrial pressure. Great Vessels The pulmonary artery was not well visualized. There is no dilatation of the ascending aorta measuring 3.60 cm. Venous The inferior vena cava is normal in size and collapses greater than 50% with inspiration. Pericardium/Pleural There is no evidence of pericardial effusion. Prior Study Comparison no previous study in the last 5 years for comparison Measurements 2D Linear Measurements IVSd: 0.88 0.6-0.9/0.6-1.0 cm LVIDd: 4.71 3.9-5.3/4.2-5.9 cm LVIDd Index: 2.53 2.4-3.2/2.2-3.1 cm/m2 LVIDs: 3.38 2.0-3.6 cm LVPWd: 0.70 0.7-1.1 cm LA Diam: 3.60 2.7-3.8/3.0-4.0 cm LAIDs Index: 1.94 1.5-2.3 cm/m2 LV Mass: 150.02 67-162/88-224 g LV Mass Index: 80.66 43-95/49-115 g/m2 LVOT Diam: 2.10 3.0+(-)1.3 cm 2D Systolic Function EF 4C: 57.30 >55% EF 2C: 71.00 >55% EF BiP: 62.90 >55% Mitral Valve MV Pk E: 0.66 MV PK A: 0.56 MV Decel Time: 232.00 E/A: 1.20 E'Lateral: 10.90 E'Medial: 6.85 E/E' Med: 9.60 E/E' Lat: 6.00 PHT: 68.00 MVA PHT: 3.24 Decel [place]: 2.82 Aortic Valve AoV Pk J Carlos: 1.38 AoV Pk Grad: 8.00 CARMINE: 3.06 LVOT LVOT Pk J Carlos: 1.24 LVOT Mn J Carlos: 0.83 LVOT VTI: 0.25 LVOT Pk Grad: 6.00 LVOT Mn Grad: 3.00 LVOT Diam: 2.10 LVOT Area: 3.46 Diastolic Function MV Pk E: 0.66 MV Pk A: 0.56 E/A: 1.20 E'Medial: 6.85 E/E' Med: 9.60 E' Laterial: 10.90 E/E' Lat: 6.00 Right Ventricle TAPSE (mm): 31.50 TVS' J Carlos: 13.40 Tricuspid Valve RA Press: 3.00 Great Vessels Aorta Sinus of Valsalva: 3.50 2.0-3.5 cm Ao Asc: 3.60 2.1-3.4 cm Pulmonary Veins Pulm Vein S/D 1.30 Pulmonary Valve PV Pk J Carlos: 1.01 Peak PV Grad: 4.00 MT Pk J Carlos: 1.64 Updated in Other Vendor System with Status of Final Thomas Laguna MD electronically signed on 06/29/2025 11:28:24 AM with status of Final
--- OUTSIDE RECORDS SUMMARY | 2025-06-28 15:09 | XMS_ITS | Clinical Summary ---
Author Organization [facility], Address [address] [place] [address] [place] [address] Phone Care Team Providers Care Project Manager Retail Name Role Phone Layton Calvert MD Primary Care Provider [phone] Allergies Active Allergy Reactions Criticality Noted Date [...] patient's age to complete this topic [place] [address] Care Teams Project Manager Retail Relationship Specialty Start Date End Date Layton Calvert MD [address] [place] [address] [address] [place], [place] PCP - General Internal Medicine 03/28/21
--- OUTSIDE RECORDS SUMMARY | 2025-06-28 15:09 | XMS_ITS | Patient Health Record ---
Author Organization [facility] Address [address] [place] [address] Care Team Providers Care [employer] Name Role Phone Jose Naik Primary Care Provider Ladan Maxwell Unavailable [phone] Mark Abarca Unavailable [phone] Allergies Allergen (clinical drug ingredient) Drug/Non Drug [...] 04/11/2025 Encounters Encounter Location Date Provider Diagnosis [facility] [address] [address] 04/11/2025 Ladan Ramesh Onychomycosis B35.1 and Pain in left toe(s) M79.675 [facility] [address] [address] 04/11/2025 Ladan Raemsh Assessments Encounter Date Diagnosis (ICD Code) Assessment [...] [employer] [address] [place] [address] [id number] Bry Zapata Self - patient is the insured [employer] [facility] [address] [place] [address] [id number] Bry Zapata Self - patient is the insured Medical (General) History Medical History History ICD Code Back,Hip,and Knee pain Broken bones Heart disease Reflux ( GERD) Measles Mumps Chicken pox Spinal stenosis stent placement Surgical History Surgery Date(Month/Year) Stent 04/2015
== END ==
LOC: HO.CARD 14:12
PROVIDERS: Visit Provider Nurse Practitioner Family
DX: I25.10 Atherosclerotic heart disease of native coronary artery without angina pectoris (principal)
CPT/HCPCS: 93306

== ENCOUNTER → 2025-06-28 14:16 | Outpatient (BNV) | payer MEDICARE, SELFPAY | PROVIDERS: Visit Provider Internal Medicine Cardiovascular Disease | DX: I25.10 Atherosclerotic heart disease of native coronary artery without angina pectoris (principal) | CPT/HCPCS: 93306 ==